=== PATIENT | male | born 1970 | race African-American/Black ===

== ENCOUNTER 2016-09-15 18:19 | Emergency (ER) | payer BC ==
[~2016-09-15] VITALS: Ht 165.1 cm; Wt 74.8 kg
[2016-09-15] MEDS ORDERED: ACETAMINOPHEN 500 MG TABLET PO ONE (21:15)
[2016-09-15] MEDS ORDERED: IV NORMAL SALINE 1000ML BAG 1,000 ML IV ONE (21:15)
[2016-09-15] MEDS ORDERED: ONDANSETRON PF 4 MG/2 ML VIAL. IV ONE (21:15)
--- NOTE | 2016-09-15 21:21 | ED.ADGEN ---
Past Medical History Past Medical History: No Pertinent History Past Surgical History: No Surgical History Alcohol Use: Occasionally Drug Use: None Adult General Chief Complaint Chief Complaint: VISION PROBLEM HPI HPI Patient is a 46 year old man, with a history of seasonal allergies, who presents to the emergency department with multiple complaints. Patient states "I 'm worried I'm having a stroke". Patient states he started feeling ill yesterday , complaining of "runny nose", and sore throat. Also some muscle aches. Patient denies any known sick contacts, states he did receive his flu vaccination. He states that he took Benadryl and TheraFlu last night and early this morning. Has not taken any medications since about 3:00 in the morning. Denies any drugs or alcohol. No cigarettes. No injuries. States he began experiencing a frontal headache and pressure behind his eyes, states that he had an episode that lasted for about 10 minutes where "I just couldn't see". Has a hard time clarifying, but states this was not a complete loss of vision, more like dizziness, associated with blurred vision, and general lites weakness. He said he felt hot during that period as well. Denies any chills, any GI or complaints. At this time he states he feels still "a little weak", but pretty much back to normal. Patient's family is present with him in the emergency department. No focal weakness, no numbness or tingling. Review of Systems Review of Systems Constitutional: Denies fever or chills. [] Generalized weakness. Eyes: Denies change in visual acuity. [] Blurred vision in both eyes. HENT: Nasal congestion, sore throat. Respiratory: Cough, rhinorrhea. [] Cardiovascular: Denies chest pain or edema. [] GI: Denies abdominal pain, nausea, vomiting, bloody stools or diarrhea. [] : Denies dysuria. [] Musculoskeletal: Denies back pain or joint pain. [] Integument: Denies rash. [] Neurologic: Denies focal weakness or sensory changes. Frontal headache. Vision changes. [] Endocrine: Denies polyuria or polydipsia. [] Lymphatic: Denies swollen glands. [] Psychiatric: Denies depression or anxiety. [] Current Medications Current Medications Current Medications Medications (Trade) Dose Ordered Sig/Florencio Start Time Stop Time Status Last Admin Dose Admin Acetaminophen (Tylenol) 1,000 mg 1X ONCE 09/15/16 21:15 09/15/16 21:19 DC 09/15/16 21:35 1,000 MG Ketorolac Tromethamine (Toradol) 10 mg 1X ONCE 09/15/16 22:30 09/15/16 22:31 DC 09/15/16 22:34 10 MG Ondansetron HCl (Zofran) 4 mg 1X ONCE 09/15/16 21:15 09/15/16 21:19 DC 09/15/16 21:35 4 MG Sodium Chloride (Iv Sodium Chloride 0.9% 1000ml Bag) 1,000 ml @ 1,000 mls/hr 1X ONCE 09/15/16 21:15 09/15/16 22:14 DC 09/15/16 21:36 1,000 MLS/HR Allergies Allergies Allergies Coded Allergies Type Severity Reaction Last Updated Verified No Known Drug Allergies 09/15/16 No Physical Exam Physical Exam Constitutional: Well developed, well nourished, no acute distress, non-toxic appearance. [] HENT: Normocephalic, atraumatic, bilateral external ears normal, patient with frontal and Lee sinus tenderness, mild in nature, turgor and swelling noted bilaterally with clear rhinorrhea, post nasal drip is noted, TMs are clear bilaterally. Eyes: PERRLA, EOMI, conjunctiva normal, no discharge. [] Neck: Normal range of motion, no tenderness, supple, no stridor. Negative jolt accentuation test, no rigidity or tenderness. Cardiovascular:Heart rate regular rhythm, no murmur, S1, S2, rubs or gallops. [] Lungs & Thorax: Bilateral breath sounds clear to auscultation, no wheezing, rhonchi, rales. [] Abdomen: Bowel sounds normal, soft, no tenderness, no chest wall tenderness or crepitus. No masses, no pulsatile masses. [] Skin: Warm, dry, no erythema, no rash. [] Back: No tenderness, no CVA tenderness. [] Extremities: No tenderness, no cyanosis, no clubbing, ROM intact, no edema. [] Neurologic: Alert and oriented X 3, normal motor function, normal sensory function, no focal deficits noted. [] Psychologic: Affect normal, judgement normal, mood normal. [] Current Patient Data Vital Signs Vital Signs Date Time Temp Pulse Resp B/P Pulse Ox O2 Delivery O2 Flow Rate FiO2 09/15/16 23:32 82 10 119/87 96 Room Air 09/15/16 19:30 98.7 98.7 Lab Values Laboratory Tests Test 09/15/16 19:15 09/15/16 21:12 09/15/16 22:41 White Blood Count 8.7x10^3/uL (4.0-11.0) Red Blood Count 4.53x10^6/uL (4.30-5.70) Hemoglobin 13.7g/dL (13.0-17.5) Hematocrit 41.7% (39.0-53.0) Mean Corpuscular Volume 92fL (79-100) Mean Corpuscular Hemoglobin 30pg (25-35) Mean Corpuscular Hemoglobin Concent 33g/dL (31-37) Red Cell Distribution Width 14.1% (11.5-14.5) Platelet Count 219x10^3/uL (140-400) Neutrophils (%) (Auto) 87% (31-73) H Lymphocytes (%) (Auto) 6% (24-48) L Monocytes (%) (Auto) 6% (0-9) Eosinophils (%) (Auto) 1% (0-3) Basophils (%) (Auto) 1% (0-3) Neutrophils # (Auto) 7.6x10^3uL (1.8-7.7) Lymphocytes # (Auto) 0.5x10^3/uL (1.0-4.8) L Monocytes # (Auto) 0.5x10^3/uL (0.0-1.1) Eosinophils # (Auto) 0.1x10^3/uL (0.0-0.7) Basophils # (Auto) 0.1x10^3/uL (0.0-0.2) Segmented Neutrophils % 84% (35-66) H Band Neutrophils % 9% (0-9) Lymphocytes % 2% (24-48) L Monocytes % 5% (0-10) Platelet Estimate Adequate (ADEQUATE) Sodium Level 142mmol/L (136-145) Potassium Level 3.4mmol/L (3.5-5.1) L Chloride Level 104mmol/L (98-107) Carbon Dioxide Level 30mmol/L (21-32) Anion Gap 8 (6-14) Blood Urea Nitrogen 12mg/dL (8-26) Creatinine 1.9mg/dL (0.7-1.3) H Estimated GFR (Cockcroft-Gault) 46.4 Glucose Level 140mg/dL (70-99) H Calcium Level 8.9mg/dL (8.5-10.1) Troponin I Quantitative < 0.017ng/mL (0.000-0.055) AL-Pmd-H-Type Natriuretic Peptide 55pg/mL (0-124) Influenza Type A Antigen Positive (NEGATIVE) Influenza Type B Antigen Negative (NEGATIVE) Urine Collection Type Unknown Urine Color Yellow Urine Clarity Clear Urine pH 5.5 Urine Specific [place] 1.010 Urine Protein Negativemg/dL (NEG-TRACE) Urine Glucose (UA) Negativemg/dL (NEG) Urine Ketones (Stick) Negativemg/dL (NEG) Urine Blood Negative (NEG) Urine Nitrite Negative (NEG) Urine Bilirubin Negative (NEG) Urine Urobilinogen Dipstick 0.2mg/dL (0.2 mg/dL) Urine Leukocyte Esterase Negative (NEG) Urine RBC 0/HPF (0-2) Urine WBC Occ/HPF (0-4) Urine Bacteria 0/HPF (0-FEW) Urine Hyaline Casts Moderate/HPF Urine Mucus Mod/LPF Urine Opiates Screen Neg (NEG) Urine Methadone Screen Neg (NEG) Urine Barbiturates Neg (NEG) Urine Phencyclidine Screen Neg (NEG) Urine Amphetamine/Methamphetamine Neg (NEG) Urine Benzodiazepines Screen Neg (NEG) Urine Cocaine Screen Pos (NEG) Urine Cannabinoids Screen Neg (NEG) Urine Ethyl Alcohol Neg (NEG) Laboratory Tests 09/15/16 19:15 Laboratory Tests 09/15/16 19:15 EKG EKG EC: Sinus rhythm, heart rate 84, QTC of 383, NH 160, QRS of 80, no ST elevations or depressions, no evidence of acute ST abnormalities. As interpreted by me. Radiology/Procedures Radiology/Procedures [] [facility] [address] [place] [address] IMAGING REPORT Signed PATIENT: BRANDY MELGAR ACCOUNT: [id number] : 1970 LOCATION: ER AGE: 46 SEX: M EXAM STATUS: REG ER ORD. PHYSICIAN: WEN LEES DO REASON: Dizziness/JEFFRIES PROCEDURE: HEAD WO CONTRAST INDICATION: 46-year-old male with headache and dizziness today. COMPARISON: None TECHNIQUE: Axial, noncontrast CT images obtained through the head. One or more of the following individualized dose reduction techniques were utilized for this examination: 1. Automated exposure control; 2. Adjustment of the mA and/or kV according to patient size; 3. Use of iterative reconstruction technique. FINDINGS: No acute intracranial process is identified, specifically no acute blood products, midline shift, mass effect or extra-axial fluid collections. Mild cerebral atrophy is present with prominence of the sulci. Ventricles and basilar cisterns are maintained. The visualized paranasal sinuses demonstrate minimal mucosal thickening. Mastoid air cells are clear. No calvarial fracture is present. Overlying scalp is intact. IMPRESSION: No acute intracranial process. Electronically signed by: Cholo Houser (Sep 15, 2016 22:08:53) DICTATED and SIGNED BY: CHOLO HOUSER MD DATE: 09/15/162207 CC: WEN LEES DO; UNKNOWN PCP NAME ~ Impressions: Chest x-ray: One view: Normal cardiopulmonary silhouette, no elbow traits, no effusions, no soft tissue or bony abnormalities identified. As interpreted by me. Course & Med Decision Making Course & Med Decision Making Pertinent Labs and Imaging studies reviewed. (See chart for details) Patient with a normal neurologic examination this time. No nuchal rigidity, negative jolt accentuation test. Noted to have turbinate swelling and drainage, with tenderness over the frontal sinuses and maxillary sinuses. Due to patient' s complaint of weakness, sinus symptoms, headache and vision changes, after discussion with patient, CT of the head obtained. I do believe the patient's symptoms are more consistent with a viral illness, based on the duration, and association with muscle aches, and upper respiratory type symptoms. Did proceed with imaging of the head, along with laboratory studies and a flu swab. CT of the head was remarkable, as was imaging of the chest, and ECG. Laboratory studies revealed a positive flu-type a, so positive for cocaine. I did discuss this with patient, both the harmful effects of cocaine in the system, potential morbidity or mortality, he states that he see last use about a month ago, denies any other drugs, does understands the risks involved. We discussed staying home from work until he is fever free without antipyretics for 24 hours , stay well-hydrated, use of supportive medications and supportive care. Patient discharged home in stable condition with his family with work note, plan as above. Dragon Disclaimer Dragon Disclaimer This electronic medical record was generated, in whole or in part, using a voice recognition dictation system. Departure Impression: Primary Impression: Influenza A Disposition: HOME, SELF-CARE Condition: IMPROVED Scripts Ondansetron Hcl (Zofran)4 Mg Tablet4 Mg PO BID PRN NAUSEA/VOMITING #14 TAB Prov:WEN LEES DO 09/15/16 Benzonatate (Tessalon Perle)100 Mg [id number] Mg PO TID PRN COUGH #14 CAP Prov:WEN LEES DO 09/15/16 WEN LEES DO Sep 15, 2016 21:21
[2016-09-15 21:22] LABS: BASO # 0.1 x10^3/uL (0.0-0.2); BASO % 1 % (0-3); EOS % 1 % (0-3); HEMATOCRIT 41.7 % (39.0-53.0); HEMOGLOBIN 13.7 g/dL (13.0-17.5); LYMPH # 0.5 x10^3/uL (1.0-4.8); LYMPH % 6 % (24-48); MEAN CORPUSCULAR HEMOGLOBIN 30 pg (25-35); MEAN CORPUSCULAR HGB CONC 33 g/dL (31-37); MEAN CORPUSCULAR VOLUME 92 fL (79-100); MONO % 6 % (0-9); NEUT % 87 % (31-73); PLATELET COUNT 219 x10^3/uL (140-400); RED BLOOD COUNT 4.53 x10^6/uL (4.30-5.70); RED CELL DISTRIBUTION WIDTH 14.1 % (11.5-14.5); WHITE BLOOD COUNT 8.7 x10^3/uL (4.0-11.0)
[2016-09-15 21:31] LABS: CALCIUM 8.9 mg/dL (8.5-10.1); CREATININE 1.9 mg/dL (0.7-1.3); GFR 46.4; POTASSIUM 3.4 mmol/L (3.5-5.1)
[2016-09-15 21:42] LABS: PLT ESTIMATE ADEQUATE (ADEQUATE)
[2016-09-15 21:43] LABS: OBC FLU VALID
--- NOTE | 2016-09-15 22:10 | RAD ---
INDICATION: 46-year-old male with headache and dizziness today. COMPARISON: None TECHNIQUE: Axial, noncontrast CT images obtained through the head. One or more of the following individualized dose reduction techniques were utilized for this examination: 1. Automated exposure control; 2. Adjustment of the mA and/or kV according to patient size; 3. Use of iterative reconstruction technique. FINDINGS: No acute intracranial process is identified, specifically no acute blood products, midline shift, mass effect or extra-axial fluid collections. Mild cerebral atrophy is present with prominence of the sulci. Ventricles and basilar cisterns are maintained. The visualized paranasal sinuses demonstrate minimal mucosal thickening. Mastoid air cells are clear. No calvarial fracture is present. Overlying scalp is intact. IMPRESSION: No acute intracranial process. Electronically signed by: Evy Houser (Sep 15, 2016 22:08:53)
[2016-09-15] MEDS ORDERED: KETOROLAC 15 MG/ML VIAL. IV ONE (22:30)
[2016-09-15 22:57] LABS: BARBITURATES NEG (NEG); BENZODIAZEPINES NEG (NEG); BILIRUBIN,URINE NEGATIVE (NEG); CANNABINOIDS NEG (NEG); COCAINE POS (NEG); GLUCOSE,URINE NEGATIVE (NEG); METHADONE NEG (NEG); NITRITE,URINE NEGATIVE (NEG); OPIATES NEG (NEG); PH,URINE 5.5; PHENCYCLIDINE NEG (NEG); PROTEIN,URINE NEGATIVE (NEG-TRACE); UROBILINOGEN,URINE 0.2 mg/dL (0.2 mg/dL)
[2016-09-15 22:59] LABS: BACTERIA,URINE 0 /HPF (0-FEW); RBC,URINE 0 /HPF (0-2); WBC,URINE OCC /HPF (0-4)
[2016-09-15 23:00] LABS: ETHANOL, URINE NEG (NEG)
[2016-09-15 23:32] VITALS: BP 119/87
[2016-09-15] MEDS ORDERED: ONDA4TAB7 PO (23:33)
[2016-09-15] MEDS ORDERED: BENZ100C PO (23:33)
--- NOTE | 2016-09-16 06:11 | EKG ---
[facility] [address] [place] [address] Test Date: 2016-09-15 Test Time: 22:02:12 Pat Name: BRANDY MELGAR Department: Room: Gender: M [employer] Supervisor: : 1970 Requested By: WEN LEES Order Number: [id number] Reading MD: Measurements Intervals [place] Rate: 84 P: 39 AR: 160 QRS: 29 QRSD: 80 T: 31 QT: 322 QTc: 383 Interpretive Statements SINUS RHYTHM NORMAL ECG RI6.01 Unconfirmed report No previous ECG available for comparison
--- NOTE | 2016-09-16 08:24 | RAD ---
Portable chest, 09/15/2016: History: Weakness and dizziness Comparison is made to a study from 04/25/2009. The heart size and pulmonary vascularity are normal. No pulmonary infiltrates are seen. There is no evidence of pleural fluid. IMPRESSION: No acute cardiopulmonary abnormality is detected.
== END 2016-09-15 23:45 | disposition home or self-care (01) ==
LOC: ER 18:19
DX: J09.X2 Influenza due to identified novel influenza A virus with other respiratory manifestations (principal); R51 Headache; H53.8 Other visual disturbances
CPT/HCPCS: 36415; 70450; 71010; 80048; 81001; 83880; 84484; 85007; 85027; 87804; 93005; 96361; 96374; 96375; 99285; G0481; J1885; J2405; J7030